=== PATIENT | female | born 1970 | race Caucasian/White ===

== ENCOUNTER 2016-09-04 16:32 | Emergency (ER) | payer MEDICAID ==
[~2016-09-04] VITALS: Ht 162.6 cm; Wt 73.0 kg
[2016-09-04] MEDS ORDERED: KETOROLAC 60MG/2ML VIAL IM ONE (18:15)
[2016-09-04 19:03] VITALS: BP 136/84
== END 2016-09-04 19:06 | disposition home or self-care (01) ==
LOC: ER 18:16
DX: E11.40 Type 2 diabetes mellitus with diabetic neuropathy, unspecified (principal); L73.9 Follicular disorder, unspecified; I10 Essential (primary) hypertension; Z90.49 Acquired absence of other specified parts of digestive tract
CPT/HCPCS: 96372; 99283; J1885

== ENCOUNTER 2017-03-06 13:25 | Emergency (ER) | payer MEDICAID ==
[~2017-03-06] VITALS: Ht 162.6 cm; Wt 77.0 kg
[2017-03-06] MEDS ORDERED: METF500T4 PO (13:52)
[2017-03-06] MEDS ORDERED: GLIP5TAB12 PO (13:52)
[2017-03-06] MEDS ORDERED: HYDROCODONE/ACETAMINOPHEN 5/325MG TABLET PO ONE (22:30)
[2017-03-07] VITALS: BP 155/83
== END 2017-03-07 00:13 | disposition home or self-care (01) ==
LOC: ER 14:02
DX: R51 Headache (principal); H11.32 Conjunctival hemorrhage, left eye; E11.9 Type 2 diabetes mellitus without complications; Z90.49 Acquired absence of other specified parts of digestive tract
CPT/HCPCS: 70450; 81025; 82962; 99284; Z7610